=== PATIENT | female | born 1980 | race Caucasian/White ===

== ENCOUNTER 2017-02-15 17:54 | Emergency (ER) | payer OTHER ==
[2017-02-15] MEDS ORDERED: SODIUM CHLORIDE 0.9% 1,000 ML IV ONE (18:11)
[2017-02-15] MEDS ORDERED: KETOROLAC 60 MG/2 ML VIAL IVP STA (18:11)
[2017-02-15] MEDS ORDERED: DEXAMETHASONE 10 MG/ML VIAL IVP STA (18:12)
[2017-02-15] MEDS ORDERED: diphenhydrAMINE INJ 50 MG/ML VIAL IVP STA (18:12)
--- NOTE | 2017-02-15 18:13 | ED Physician Documentation ---
History of Present Illness - Stated complaint Stated Complaint: HEADACHE/12 DAYS - Chief complaint Chief Complaint: General - History obtained from History obtained from: Patient, Family - History of Present Illness Timing: Other (36-year-old woman with history of migraines for a long time. Was maintained on prophylactic Topamax but she stopped it a year and a half ago due to side effects. Usually her migraines are controlled by [id number] medications at home, but she had a gradual onset typical throbbing headache associated photophobia, phonophobia, and nausea but no vomiting 12 days ago that has not responded to her usual treatments. There is no associated fever or neck stiffness.) Review of Systems Constitutional: denies: Fever, Chills Eyes: reports: Photophobia. 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 - Present Medications Home Medications: Ambulatory Orders Medication Instructions Recorded Confirmed Multivitamin [Multiple Vitamins] 1 tab PO DAILY 02/15/17 02/15/17 - Allergies Allergies/Adverse Reactions: Allergies Allergy/AdvReac Type Severity Reaction Status Date / Time No Known Drug Allergies Allergy Verified 02/15/17 17:59 - Social History Does the pt smoke?: No Smoking Status: Never smoker Does the pt drink ETOH?: No Does the pt have substance abuse?: No - Immunizations Immunizations are current?: Yes PD ED PE NORMAL - Vitals Vital signs reviewed: Yes - General General: Alert and oriented X 3, No acute distress - HEENT HEENT: PERRL, EOMI - Neck Neck: Supple, no meningeal sign, No bony TTP - Derm Derm: No rash - Neuro Neuro: Alert and oriented X 3, financial services officer 2-12 intact, No motor deficit, No sensory deficit, Normal speech - Psych Psych: Normal mood, Normal affect Results - Vitals Vitals: Vital Signs - 24 hr 02/15/17 02/15/17 17:57 20:09 Temperature 37.0 C Heart Rate 85 53 L Respiratory 16 18 Rate Blood Pressure 126/80 147/91 H O2 Saturation 98 97 Oxygen O2 Source Room air PD MEDICAL DECISION MAKING - ED course ED course: The headache is gradual in onset and similar to prior headaches. As such I doubt subarachnoid hemorrhage. There are no infectious symptoms such as fever or stiff neck to make me suspect meningitis. No carbon monoxide exposure by history. Initially treated with IV fluids, Toradol, Reglan, Benadryl, dexamethasone. On recheck after that she had significant relief, but definitely incomplete. This was followed by subcutaneous Imitrex which was ineffective if not slightly worse after that, after that she had IV Haldol and magnesium which completely resolved her headache and she was quite thankful. Departure - Departure Disposition: Home, Self Care Clinical Impression: Migraine Qualifiers: Migraine type: without aura Status migrainosus presence: with status migrainosus Intractability: intractable Qualified Code(s): G43.011 - Migraine without aura, intractable, with status migrainosus Condition: Good Record reviewed to determine appropriate education?: Yes Instructions: ED Headache Migraine Comments: For future reference, the most successful medication here was haloperidol. Call your doctor to arrange a follow-up appointment, make the next available appointment. In the interim, return anytime if worse or if new symptoms develop. Your blood pressure was elevated today on check into the emergency department. This does not mean that you have hypertension, it is a common phenomenon to come to the emergency department and have elevated blood pressure. I recommend that she see her primary care physician within the week to have it rechecked when you are feeling better.
[2017-02-15] MEDS ORDERED: KETOROLAC 30 MG/ML VIAL ONE (18:21)
[2017-02-15] MEDS ORDERED: diphenhydrAMINE INJ 50 MG/ML VIAL ONE (18:21)
[2017-02-15] MEDS ORDERED: DEXAMETHASONE 10 MG/ML VIAL ONE (18:21)
[2017-02-15] MEDS ORDERED: SUMAtriptan 6 MG/0.5 ML VIAL SUBQ STA (18:59)
[2017-02-15] MEDS ORDERED: SUMAtriptan 6 MG/0.5 ML VIAL SUBQ ONE (19:21)
[2017-02-15] MEDS ORDERED: MAGNESIUM SULFATE 2 GRAM 50 ML IV ONE ×2 (19:51→20:01)
[2017-02-15] MEDS ORDERED: HALOPERIDOL 5 MG/ML VIAL IVP ONE (19:51)
[2017-02-15] MEDS ORDERED: HALOPERIDOL 5 MG/ML VIAL ONE (20:01)
[2017-02-15 20:58] VITALS: BP 123/79
== END 2017-02-15 20:58 | disposition home or self-care (01) ==
LOC: ED 17:54
DX: G43.011 Migraine without aura, intractable, with status migrainosus (principal); R03.0 Elevated blood-pressure reading, without diagnosis of hypertension; H53.149 Visual discomfort, unspecified
CPT/HCPCS: 36415; 96365; 96372; 96375; 99283; 99284

== ENCOUNTER 2018-11-23 16:32 | Emergency (ER) | payer OTHER ==
[2018-11-23] MEDS ORDERED: KETOROLAC 60 MG/2 ML VIAL IM STA (17:01)
--- NOTE | 2018-11-23 17:03 | ED Physician Documentation ---
History of Present Illness - Stated complaint Stated Complaint: FEMALE - Chief complaint Chief Complaint: General - History obtained from History obtained from: Patient - History of Present Illness Timing: Yesterday (This is a 37-year-old woman with history of C-sections and occasional ovarian pain who had a Pap smear yesterday. After that she had gradual onset but mild vaginal and pelvic pain which became much more severe today. She was seen again at the [facility] [facility] and had a pelvic exam done which was described as normal visually but she says the bimanual portion was very tender. She denies bleeding or discharge. She has severe lower abdominal pain. She is nauseous because of it. She denies any fevers. 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 - Present Medications Home Medications: Ambulatory Orders Medication Instructions Recorded Confirmed Multivitamin [Multiple Vitamins] 1 tab PO DAILY 02/15/17 02/15/17 Hydrocodone/Acetaminophen 1 - 2 each PO Q6H PRN #14 tablet 11/23/18 [Hydrocodon-Acetaminophen 5-325] Metronidazole [Flagyl] 500 mg PO TID #20 tablet 11/23/18 RX: Doxycycline Hyclate 100 mg PO BID #20 capsule 11/23/18 - Allergies Allergies/Adverse Reactions: Allergies Allergy/AdvReac Type Severity Reaction Status Date / Time No Known Drug Allergies Allergy Verified 11/23/18 16:49 - Living Situation Living Situation: reports: With spouse/s.o. - Social History Does the pt smoke?: No Smoking Status: Never smoker Does the pt drink ETOH?: No Does the pt have substance abuse?: No - Family History Family history: reports: Non contributory - Immunizations Immunizations are current?: Yes PD ED PE NORMAL - Vitals Vital signs reviewed: Yes - General General: Alert and oriented X 3, Well developed/nourished (Appears uncomfortable) - HEENT HEENT: PERRL - Neck Neck: Supple, no meningeal sign, No bony TTP - Cardiac Cardiac: RRR, No murmur - Respiratory Respiratory: No respiratory distress, Clear bilaterally - Abdomen Abdomen: Other (Soft without surgical signs. She is tender in the suprapubic area and left greater than right lower quadrants.) - Back Back: No CVA TTP, No spinal TTP - Derm Derm: Normal color, Warm and dry - Extremities Extremities: No edema, No calf tenderness / cord - Neuro Neuro: Alert and oriented X 3, Normal speech Results - Vitals Vitals: Vital Signs - 24 hr 11/23/18 11/23/18 16:45 20:20 Temperature 36.9 C 36.9 C Heart Rate 73 74 Respiratory 14 14 Rate Blood Pressure 138/103 H 117/83 H O2 Saturation 96 97 Oxygen O2 Source Room air - Labs Labs: Laboratory Tests 11/23/18 11/23/18 11/23/18 17:09 17:09 17:10 WBC 9.1 RBC 4.63 Hgb 13.5 Hct 40.6 MCV 87.7 MCH 29.1 MCHC 33.1 RDW 13.3 Plt Count 211 MPV 7.8 L Neut # (Auto) 5.5 Lymph # (Auto) 2.6 Lanier # (Auto) 0.7 Eos # (Auto) 0.2 Baso # (Auto) 0.1 Absolute Nucleated RBC 0.00 Nucleated RBC % 0.0 Sodium 140 Potassium 4.0 Chloride 102 Carbon Dioxide 23 Anion Gap 15.0 H BUN 12 Creatinine 0.8 Estimated GFR (MDRD) 80 L Glucose 97 Calcium 9.2 Total Bilirubin 0.4 AST 25 ALT 19 Alkaline Phosphatase 50 Total Protein 7.6 Albumin 3.8 Globulin 3.8 Albumin/Globulin Ratio 1.0 Lipase 40 Urine Color YELLOW Urine Clarity CLEAR Urine pH 7.0 Ur Specific [place] 1.010 Urine Protein TRACE Urine Glucose (UA) 100 H Urine Ketones NEGATIVE Urine Occult Blood SMALL H Urine Nitrite POSITIVE H Urine Bilirubin NEGATIVE Urine Urobilinogen 2 H Ur Leukocyte Esterase TRACE H Urine RBC 0-5 Urine WBC 6-10 H Ur Squamous Epith Cells MOD Squamous H Urine Bacteria Rare Urine Mucus Ur Microscopic Review INDICATED Urine Culture Comments NOT INDICATED Urine HCG, Qual NEGATIVE 11/23/18 19:00 WBC RBC Hgb Hct MCV MCH MCHC RDW Plt Count MPV Neut # (Auto) Lymph # (Auto) Lan[place] # (Auto) Eos # (Auto) Baso # (Auto) Absolute Nucleated RBC Nucleated RBC % Sodium Potassium Chloride Carbon Dioxide Anion Gap BUN Creatinine Estimated GFR (MDRD) Glucose Calcium Total Bilirubin AST ALT Alkaline Phosphatase Total Protein Albumin Globulin Albumin/Globulin Ratio Lipase Urine Color ORANGE Urine Clarity CLEAR Urine pH 6.0 Ur Specific [place] 1.025 Urine Protein 30 H Urine Glucose (UA) Urine Ketones Urine Occult Blood SMALL H Urine Nitrite Urine Bilirubin COLOR INTERFERENCE Urine Urobilinogen Ur Leukocyte Esterase TRACE H Urine RBC 0-5 Urine WBC 11-25 H Ur Squamous Epith Cells FEW Squamous Urine Bacteria None Seen Urine Mucus Moderate Strands Ur Microscopic Review INDICATED Urine Culture Comments INDICATED Urine HCG, Qual - Rads (name of study) Pelvic sono Radiology: See rad report (Vascular bandlike structure in the right adnexa with of 1.6 cm which is very painful, could be a normal or abnormal finding.) PD MEDICAL DECISION MAKING - ED course ED course: 37-year-old woman in monogamous relationship presents with severe pelvic pain a day after having a Pap smear. Ultrasound potentially concerning for tubo- ovarian abscess. Case discussed by phone with Dr. Wilkinson the on-call improvement leader who recommended discharge with antibiotics and return for vomiting or fevers. Patient comfortable with the plan. Departure - Departure Disposition: 01 Home, Self Care Clinical Impression: PID (acute pelvic inflammatory disease), UTI (urinary tract infection) Condition: Good Record reviewed to determine appropriate education?: Yes Instructions: ED PID Prescriptions: RX: Doxycycline Hyclate 100 mg PO BID #20 capsule Hydrocodone/Acetaminophen [Hydrocodon-Acetaminophen 5-325] 1 - 2 each PO Q6H PRN #14 tablet PRN Reason: pain Metronidazole [Flagyl] 500 mg PO TID #20 tablet Comments: As discussed, return immediately if pain is intolerable, for fevers, or vomiting. Follow-up with your doctor in 48 hours. We will culture your urine, the results should be done in 48-72 hours. If an antibiotic change is necessary we will call you. Return if worse in the meantime, especially if you develop increasing flank pain, fevers, or cannot keep down the medication. Discharge Date/Time: 11/23/18 21:08
[2018-11-23 17:16] LABS: BASOPHILS # (AUTO) 0.1 10^3/uL (0.0-0.1); BASOPHILS % (AUTO) 0.6 %; EOSINOPHILS # (AUTO) 0.2 10^3/uL (0.0-0.7); HGB - HEMOGLOBIN 13.5 g/dL (12.0-16.0); LYMPHOCYTES # (AUTO) 2.6 10^3/uL (1.5-3.5); LYMPHOCYTES % (AUTO) 29.1 %; MEAN CORPUSCULAR HEMOGLOBIN 29.1 pg (27.0-31.0); MEAN CORPUSCULAR HGB CONC 33.1 g/dL (32.0-36.0); MEAN CORPUSCULAR VOLUME 87.7 fL (81.0-99.0); MEAN PLATELET VOLUME 7.8 fL (7.9-10.8); MONOCYTES # (AUTO) 0.7 10^3/uL (0.0-1.0); MONOCYTES % (AUTO) 7.5 %; NEUTROPHILS # (AUTO) 5.5 10^3/uL (1.5-6.6); NEUTROPHILS % (AUTO) 60.8 %; PLT - PLATELET COUNT 211 10^3/uL (130-450); RED BLOOD COUNT 4.63 10^6/uL (4.20-5.40); RED CELL DISTRIBUTION WIDTH 13.3 % (12.0-15.0); WHITE BLOOD COUNT 9.1 x10^3/uL (4.8-10.8)
[2018-11-23 17:22] LABS: BILIRUBIN,URINE NEGATIVE (NEGATIVE); CLARITY,URINE CLEAR (CLEAR); GLUCOSE, URINE (UA) 100 mg/dL (NEGATIVE); KETONES,URINE (UA) NEGATIVE (NEGATIVE); LEUKOCYTE ESTERASE, URINE TRACE (NEGATIVE); NITRITE,URINE POSITIVE (NEGATIVE); OCCULT BLOOD,URINE SMALL (NEGATIVE); PROTEIN,URINE TRACE mg/dL (NEGATIVE); UROBILINOGEN,URINE 2 E.U./dL (NORMAL)
[2018-11-23 17:23] LABS: HCG UR QUAL NEGATIVE
[2018-11-23 17:30] LABS: ALBUMIN 3.8 g/dL (3.2-5.5); BILIRUBIN,TOTAL 0.4 mg/dL (0.2-1.0); CALCIUM 9.2 mg/dL (8.5-10.3); CREATININE 0.8 mg/dL (0.4-1.0); TOTAL PROTEIN 7.6 g/dL (6.7-8.2)
[2018-11-23 17:35] LABS: BACTERIA,URINE Rare /HPF (None Seen); RBC,URINE 0-5 /HPF (0-5); SQUAMOUS EPITHELIAL CELL,UR MOD Squamous (<= Few)
[2018-11-23 19:15] LABS: LEUKOCYTE ESTERASE, URINE TRACE (NEGATIVE); OCCULT BLOOD,URINE SMALL (NEGATIVE); PROTEIN,URINE 30 mg/dL (NEGATIVE)
[2018-11-23 19:27] LABS: CLARITY,URINE CLEAR (CLEAR)
--- NOTE | 2018-11-23 19:28 | Ultrasound Report ---
Reason: pelvic pain, R Procedure Date: 11/23/2018 Accession Number: [id number] / [id number] Procedure: US - Pelvic w/Transvag+Doppler Comp CPT Code: FULL RESULT: EXAM: PELVIC ULTRASOUND WITH DOPPLERS CLINICAL HISTORY: Right pelvic pain. COMPARISON: None. TECHNIQUE: Realtime transabdominal imaging performed to identify the uterus and adnexa and as an overview of other pelvic structures, followed by transvaginal imaging for better assessment of the endometrium and adnexa, with static image documentation. Color flow imaging and Doppler spectral analysis was performed to evaluate blood flow to the ovaries given pelvic pain and clinical concern for ovarian torsion. FINDINGS: Uterus: 10.9 x 5.2 x 6.0 cm, volume 177 cc. Anteverted position. Normal overall size and echotexture. scar is suspected. Masses: None. Endometrium: 7.7 mm. Normal. Cervix: Unremarkable. Right Ovary: 3.6 x 2.0 x 2.7 cm, volume 10.1 cc. Corpus luteum seen in the right ovary. Normal echotexture. Arterial and venous blood flow are present. PSV 35 cm/sec. RI 0.63. Adnexa: Bandlike structure with vascularity seen in the right adnexa connecting the right ovary to the uterus, has a width of 1.6 cm, could represent the utero-ovarian ligament, could be prominent or within normal limits. The patient is in extreme pain in this area.. Left Ovary: 3.1 x 1.9 x 2.3 cm, volume 7.0 cc. Normal echotexture. Arterial and venous blood flow are present. PSV 12 cm/sec. RI 0.73. Adnexa are unremarkable. Free Fluid: None. Other: None. IMPRESSION: 1. No evidence for ovarian torsion. 2. Bandlike structure with vascularity seen in the right adnexa connecting the right ovary to the uterus, has a width of 1.6 cm, could represent the utero-ovarian ligament, could be prominent or within normal limits. The patient is in extreme pain in this area. RADIA
[2018-11-23 19:29] LABS: BILIRUBIN,URINE COLOR INTERFERENCE (NEGATIVE)
[2018-11-23 19:30] LABS: BACTERIA,URINE None Seen /HPF (None Seen); MUCUS,URINE Moderate Strands; RBC,URINE 0-5 /HPF (0-5); SQUAMOUS EPITHELIAL CELL,UR FEW Squamous (<= Few)
[2018-11-23 20:21] VITALS: BP 117/83
[2018-11-23] MEDS ORDERED: metroNIDAZOLE 250 MG TABLET PO STA ×2 (20:26)
[2018-11-23] MEDS ORDERED: HYDROcod/ACET 5/325 Prepack 4 PO STA (20:26)
[2018-11-23] MEDS ORDERED: DOXYCYCLINE 100 MG TABLET PO STA (20:26)
[2018-11-23] MEDS ORDERED: cefTRIAXone 1 GM VIAL IM STA (20:26)
[2018-11-23] MEDS ORDERED: HYDROcod/ACETAM 5/325 MG TABLET PO STA (20:26)
[2018-11-23] MEDS ORDERED: LIDOCAINE 1% 2 ML VIAL MC ONE (20:26)
== END 2018-11-23 21:08 | disposition home or self-care (01) ==
LOC: ED 16:32
DX: N73.9 Female pelvic inflammatory disease, unspecified (principal); N39.0 Urinary tract infection, site not specified
CPT/HCPCS: 36415; 76830; 76856; 80053; 81001; 81025; 83690; 85025; 87077; 87086; 93975; 96372; 99283; A9270; 81003

== ENCOUNTER 2018-12-27 09:25 | Day surgery (SDC) | payer OTHER ==
[~2018-12-27 09:25] MED LIST: CEFAZOLIN SODIUM IN 0.9 % NACL 2 GM/100 ML BAG IV ONE
[2018-12-27] MEDS ORDERED: LACTATED RINGERS 1,000 ML IV ONE (09:29)
[2018-12-27 09:44] LABS: HCG UR QUAL NEGATIVE
--- NOTE | 2018-12-27 09:58 | ANESTHESIA ---
Pre-Anesthesia VS, & Labs - Diagnosis Pelvic pain - Procedure Diagnostic lap, possible fulgeration/biopsies/lysis of adhesions Vital Signs: Temp Pulse Resp BP Pulse Ox 36.6 C 75 16 115/73 100 12/27/18 09:30 12/27/18 09:30 12/27/18 09:30 12/27/18 09:30 12/27/18 09:30 Height 5 ft 7 in Weight (kg) 98.6 kg Body Mass Index 25.8 - NPO >8 hours - Is Patient ?: No - Lab Results Lab results reviewed: Yes Home Medications and Allergies Home Medications: Ambulatory Orders Ibuprofen [Motrin] 600 mg PO Q6H PRN 12/16/18 Acetaminophen [Tylenol Extra Strength] 500 mg PO Q4HR 12/27/18 Multivitamin [Multiple Vitamins] 1 tab PO DAILY 02/15/17 Ibuprofen [Motrin] 600 mg PO Q6H PRN 12/16/18 Levofloxacin [Levaquin] 500 mg PO 12/16/18 Allergies/Adverse Reactions: Allergies Allergy/AdvReac Type Severity Reaction Status Date / Time No Known Drug Allergies Allergy Verified 12/16/18 15:21 Anes History & Medical History - Anesthetic History Anesthesia Complications: reports: No previous complications Family history of Anesthesia Complications: Denies Family history of Malignant Hyperthermia: Denies - Medical History Cardiovascular: reports: None Pulmonary: reports: None Gastrointestinal: reports: None, Other (Nausea with pain) Urinary: reports: Other (Urinary burning) Neuro: reports: None Musculoskeletal: reports: None Endocrine/Autoimmune: reports: None Blood Disorders: reports: None Skin: reports: None Smoking Status: Never smoker Psychosocial: reports: No issues indicated - Surgical History Gynecologic: section, Other Exam General: Alert, Oriented x3, Cooperative Dental: WNL Mouth Opening: Greater than 4 Fingerbreadths Neck Mobility: Normal Mallampati classification: I Thyromental Distance: greater than 6 cm Respiratory: Lungs clear Cardiovascular: Regular rate Mental/Cognitive Status: Alert/Oriented X3 Cognitive Status: Within normal limits Plan Anesthesia Type: General Consent for Procedure(s) Verified and Reviewed: Yes Code Status: Attempt Resuscitation ASA classification: 2-Mild systemic disease Is this case an emergency?: No
[2018-12-27] MEDS ORDERED: BUPIVACAINE 0.25% PF 30 ML VIAL ONE (10:03)
[2018-12-27] MEDS ORDERED: PROPOFOL 200 MG/20 ML VIAL IVP ONE (10:50)
[2018-12-27] MEDS ORDERED: KETOROLAC 30 MG/ML VIAL IVP ONE (10:50)
[2018-12-27] MEDS ORDERED: NEOSTIGMINE 1 MG/1 ML 10 ML MDV IVP ONE (10:50)
[2018-12-27] MEDS ORDERED: ACETAMINOPHEN 1,000 MG/100 ML 100 ML IV ONE (10:50)
[2018-12-27] MEDS ORDERED: fentaNYL 100 MCG/2 ML VIAL IVP ONE (10:50)
[2018-12-27] MEDS ORDERED: GLYCOPYRROLATE 1 MG/5 ML VIAL IVP ONE (10:50)
[2018-12-27] MEDS ORDERED: MIDAZOLAM 2 MG/2 ML VIAL IVP ONE (10:50)
[2018-12-27] MEDS ORDERED: ONDANSETRON 4 MG/2 ML VIAL IVP ONE (10:50)
[2018-12-27] MEDS ORDERED: ROCURONIUM 50 MG/5 ML VIAL IVP ONE (10:50)
[2018-12-27] MEDS ORDERED: DEXAMETHASONE 4 MG/ML VIAL IVP ONE (10:50)
[2018-12-27] MEDS ORDERED: LIDOCAINE-MPF 2% 5 ML VIAL IM ONE (10:50)
[2018-12-27] MEDS ORDERED: HYDROcod/ACETAM 10 MG/325 MG TABLET PO PRN (11:44)
[2018-12-27] MEDS ORDERED: ONDANSETRON 4 MG/2 ML VIAL IVP PRN (11:44)
[2018-12-27] MEDS ORDERED: OXYBUTYNIN 5MG TABLET PO PRN (11:44)
--- NOTE | 2018-12-27 11:52 | OPERATIVE REPORT ---
Operative Report - General Procedure Date: 12/27/18 Planned Procedure: Laparoscopy, cystoscopy with hydrodistention, possible fulguration of endometriosis, possible lysis of adhesions Pre-Op Diagnosis: Pelvic pain Procedure Performed: Laparoscopy, fulguration of endometriosis, lysis of adhesion, cystoscopy with hydrodistention Post Op Diagnosis: Endometriosis, pelvic adhesion - Procedure Note Primary Surgeon: Dr. Noris Tamayo Secondary Surgeon: Dr. Clifton Cordon Anesthesia Provider: MILTON Jean Anesthesia Technique: General ET tube Pathology: None IV Fluids (mL): 700 Estimated Blood Loss (mL): 5 Urine Output (mL): 100 Indications: The patient is a 38-year-old 2 para 2 female here for diagnostic laparoscopy for evaluation and possible management of chronic pelvic pain. She first noted pelvic pain started approximately 3 years ago, upon cessation of control pills. She stopped the medication due to bothersome hormonal and mood side effects. Menses since then have been every 20 to 30 days. They are light and last approximately 2 days. She notes bilateral pelvic pain with the right worse than the left, and seems to note the pain most at the sites of her ovaries. Symptoms have really seemed to worsen over the past year and now occurs daily. Pain is crampy with frequent stabbing into her cervix and at her ovaries. She does have dyspareunia with deep penetration only, which is usually not much of a bother. She had severe pain after her last well-woman, bimanual exam in early November and had to go to the Emergency Room 11/24 due to persistent pain. There, a pelvic ultrasound noted a vascular band adjacent to the right ovary but no cysts, masses, or free fluid. She was treated for possible pelvic inflammatory disease given the presence of cervical motion tenderness. However, upon stopping the antibiotics, pain continued. She does have a history of 2 prior sections for deliveries. Given the onset of pain after stopping control pills, the differential diagnosis included adhesions, as well as endometriosis. She also had a history notable for recurrent dysuria with monthly urinary tract infection symptoms. However, she reported she stopped coming in for visits, as the urine cultures were usually negative. Given this constellation of symptoms, it was recommended she undergo a diagnostic laparosc opy, as well as a cystoscopy with hydrodistention, to further evaluate and possibly treat her pelvic pain. The risks, benefits, limitations, alternatives, and expectations of surgery were discussed. The consent was reviewed and signed prior to the date of surgery. Findings: Exam under anesthesia: The uterus was anteverted and approximately 7 weeks in size. No adnexal masses were palpable. The uterus was felt to be mobile within the pelvis. Operative findings: The uterus, fallopian tubes, and ovaries were overall normal in appearance. However, there was a small, approximately 1 cm, paratubal cyst at the distal left fallopian tube, and there was also some salpingiosis present. There was a single endometriotic implant at the left anterior cul-de-sac, overlying the bladder flap on the peritoneal reflection. There were also multiple, tiny cystic endometriosis lesions at the right, anterior uterus and a single cystic lesion just posterior to the cervix, within the posterior cul-de-sac. These were all fulgurated with monopolar cautery. There was mild scar tissue across the bladder flap site, resulting from her sections. There was also a thick band of scar tissue from the right lower uterine segment to the anterior peritoneum. This was lysed at the completion of the case. There was mild, bilateral pelvic vascular congestion noted. The appendix was visualized and appeared normal. The liver edge also appeared normal. There were no other pelvic adhesions noted. Cystoscopy noted diffuse hyperemia. However, during the hydrodistention, there was no development of terminal hematuria, Hunner's ulcers, or petechiae consistent with interstitial cystitis. - Other Other Information/Narrative: Procedure: The patient was taken to the operating room, where general endotracheal anesthesia was administered without difficulty. She was then positioned in the low dorsal lithotomy position with her lower extremities in [place] stirrups. Vagina, perineum, and abdomen were then prepped and draped in a sterile fashion, and an in-an-out catheterization was performed. Procedure Time-Out was then performed. A sterile bivalve speculum was then inserted into the vagina. The anterior lip of the cervix was grasped with a single-toothed tenaculum, then the cervix was serially dilated until a Humi uterine manipulator could be advanced and the balloon inflated. The speculum was then removed, and attention was turned to the laparoscopy. 0.25% Marcaine was injected infraumbilically, then a 7-mm vertical skin incision made. A Verrees needle was then inserted through the anterior layers of the abdominal wall with saline drop test suggesting intraperitoneal placement. Carbon dioxide gas insufflation was then performed with appropriate opening pressures noted. Once 2 L of gas was instilled, a 0-degree, 5 mm laparoscope was inserted into a 5 mm trocar and passed through the anterior layers of the abdominal wall using Optiview technique. The abdomen was visualized, then two additional ports placed at the right and left lower quadrants, first instilling local anesthetic, then placing the port under direct visualization with the laparoscope. The patient was placed into Trendelenberg and bowel swept out of the cul-de-sac. The pelvis was visualized with the findings as noted above. Monopolar cautery was utilized to fulgurate the endometriosis lesions at the anterior, left pelvis, within the cul-de-sac, and across the right, anterior fundus. At this point the laparoscopy was deemed complete, and all trocars were removed from the abdomen. The carbon dioxide gas was then allowed to escape. The incisions were then closed with 4-0 Monocryl in a subcuticular fashion followed by Dermabond skin adhesive. The uterine manipulator was removed, then the sterile bivalve speculum reinserted to ensure that the tenaculum sites were hemostatic. Attention was then turned to the cystoscopy. The bladder was filled with approximately 700 ml of sterile saline with the distention fluid placed approximately 100 cm above the level of the bladder. At 700 ml, the fluid started to leak around the scope, and instillation was paused. The fluid was left in the bladder for 2 minutes then emptied. No terminal hematuria was noted. The bladder was then refilled. No hematuria, Hunner's ulcers, or petechiae were noted. The fluid was again allowed to sit for 2 minutes then drained. At this point the procedure was deemed complete. The patient was then replaced supine, awakened, extubated, and transferred to the PACU in stable condition. There were no complications. Sponge, lap, and needle count were correct x 3.
[2018-12-27] MEDS: fentaNYL 100 MCG/2 ML VIAL ONE ×2 (11:57→12:10)
[2018-12-27] MEDS ORDERED: LACTATED RINGERS 500 ML IV ONE (12:10)
[2018-12-27] MEDS: HYDROmorphone 0.5 MG/0.5 ML SYRINGE ONE ×2 (12:16→12:22)
[2018-12-27] MEDS ORDERED: HYDROcod/ACETAM 10 MG/325 MG TABLET ONE (12:57)
[2018-12-27 14:09] VITALS: BP 101/63
== END 2018-12-27 09:26 | disposition home or self-care (01) ==
LOC: SDS 09:25
PROVIDERS: ATTEND Obstetrics & Gynecology
PROC: 0TJB8ZZ Inspection of Bladder, Via Natural or Artificial Opening Endoscopic (ICD-10-PCS; 2018-12-27)
PROC: 0U5F4ZZ Destruction of Cul-de-sac, Percutaneous Endoscopic Approach (ICD-10-PCS; principal; 2018-12-27 10:30)
PROC: 0U594ZZ Destruction of Uterus, Percutaneous Endoscopic Approach (ICD-10-PCS; 2018-12-27 10:30)
DX: N80.3 Endometriosis of pelvic peritoneum (principal); N80.0 Endometriosis of uterus; N99.4 Postprocedural pelvic peritoneal adhesions; N94.89 Other specified conditions associated with female genital organs and menstrual cycle; N32.89 Other specified disorders of bladder; N94.12 Deep dyspareunia; Z92.0 Personal history of contraception; Z98.891 History of uterine scar from previous surgery
CPT/HCPCS: 52000; 58662; 81025; A9270; J0131; J0690; J1170; J7120

== ENCOUNTER 2019-04-06 08:41 | Emergency (ER) | payer OTHER ==
--- NOTE | 2019-04-06 09:25 | XRAY Report ---
Reason: chest pressure Procedure Date: 04/06/2019 Accession Number: [id number] / [id number] Procedure: XR - Chest 1 View X-Ray CPT Code: 66684 FULL RESULT: EXAM: CHEST RADIOGRAPHY EXAM DATE: 04/06/2019 09:13 AM. CLINICAL HISTORY: Chest pressure. COMPARISON: CHEST 2 VIEW PA/LAT 12/13/2013 6:55 PM. TECHNIQUE: 1 view. FINDINGS: Lungs/Pleura: No focal opacities evident. No pleural effusion. No pneumothorax. Mediastinum: Within exam limitations, the cardiomediastinal contour is normal. Other: None. IMPRESSION: No acute cardiopulmonary abnormality. RADIA
[2019-04-06 09:36] LABS: BASOPHILS % (AUTO) 0.8 %; EOSINOPHILS # (AUTO) 0.1 10^3/uL (0.0-0.7); EOSINOPHILS % (AUTO) 2.4 %; LYMPHOCYTES # (AUTO) 1.5 10^3/uL (1.5-3.5); LYMPHOCYTES % (AUTO) 29.9 %; MEAN CORPUSCULAR HEMOGLOBIN 29.1 pg (27.0-31.0); MEAN CORPUSCULAR HGB CONC 32.3 g/dL (32.0-36.0); MEAN CORPUSCULAR VOLUME 90.4 fL (81.0-99.0); MEAN PLATELET VOLUME 10.1 fL (7.9-10.8); MONOCYTES # (AUTO) 0.4 10^3/uL (0.0-1.0); MONOCYTES % (AUTO) 8.7 %; NEUTROPHILS # (AUTO) 2.9 10^3/uL (1.5-6.6); NEUTROPHILS % (AUTO) 57.8 %; PLT - PLATELET COUNT 190 10^3/uL (130-450); RED BLOOD COUNT 4.46 10^6/uL (4.20-5.40); RED CELL DISTRIBUTION WIDTH 12.7 % (12.0-15.0); WHITE BLOOD COUNT 5.1 x10^3/uL (4.8-10.8)
[2019-04-06 09:47] LABS: ALBUMIN 4.1 g/dL (3.2-5.5); ALBUMIN/GLOBULIN RATIO 1.2 (1.0-2.2); BILIRUBIN,TOTAL 0.7 mg/dL (0.2-1.0); CALCIUM 9.1 mg/dL (8.5-10.3); CREATININE 0.8 mg/dL (0.4-1.0); TOTAL PROTEIN 7.6 g/dL (6.7-8.2)
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
[2019-04-06] MEDS ORDERED: ASPIRIN CHEW 81 MG TABLET PO STA (14:17)
[2019-04-06 16:55] VITALS: BP 110/72
== END 2019-04-06 17:13 | disposition short-term general hospital (02) ==
LOC: ED 08:41
DX: R07.89 Other chest pain (principal); M79.602 Pain in left arm; Z82.49 Family history of ischemic heart disease and other diseases of the circulatory system
CPT/HCPCS: 36415; 71045; 80053; 83690; 84484; 85025; 93005; 99284; 99285; A9270

== ENCOUNTER 2019-04-06 17:06 | Outpatient (CLI) | payer OTHER | END 2019-04-06 17:07 | disposition short-term general hospital (02) | LOC: EMS 17:06 | PROVIDERS: ATTEND Surgery | DX: R07.9 Chest pain, unspecified (principal) | CPT/HCPCS: A0425; A0426 ==

== ENCOUNTER 2019-09-08 14:17 | Emergency (ER) | payer OTHER ==
[2019-09-08] MEDS ORDERED: SODIUM CHLORIDE 0.9% 1,000 ML IV ONE ×2 (15:19→18:18)
[2019-09-08] MEDS ORDERED: ONDANSETRON 4 MG/2 ML VIAL IVP STA ×2 (15:19→18:33)
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
[2019-09-08 15:35] LABS: BASOPHILS % (AUTO) 0.3 %; EOSINOPHILS % (AUTO) 0.1 %; HGB - HEMOGLOBIN 14.5 g/dL (12.0-16.0); LYMPHOCYTES # (AUTO) 0.4 10^3/uL (1.5-3.5); LYMPHOCYTES % (AUTO) 5.4 %; MEAN CORPUSCULAR VOLUME 88.2 fL (81.0-99.0); MEAN PLATELET VOLUME 9.4 fL (7.9-10.8); MONOCYTES # (AUTO) 0.3 10^3/uL (0.0-1.0); MONOCYTES % (AUTO) 3.8 %; NEUTROPHILS % (AUTO) 89.9 %; PLT - PLATELET COUNT 177 10^3/uL (130-450); RED BLOOD COUNT 4.84 10^6/uL (4.20-5.40); RED CELL DISTRIBUTION WIDTH 13.2 % (12.0-15.0); WHITE BLOOD COUNT 7.8 x10^3/uL (4.8-10.8)
[2019-09-08 15:49] LABS: ALBUMIN 4.2 g/dL (3.2-5.5); ALBUMIN/GLOBULIN RATIO 1.2 (1.0-2.2); BILIRUBIN,TOTAL 0.8 mg/dL (0.2-1.0); CALCIUM 8.9 mg/dL (8.5-10.3); CREATININE 0.8 mg/dL (0.4-1.0); TOTAL PROTEIN 7.6 g/dL (6.7-8.2)
[2019-09-08] MEDS ORDERED: PROMETHAZINE INJ 25 MG in SODIUM CHLORIDE 0.9% 50 ML IV STA (16:23)
[2019-09-08 17:33] LABS: BILIRUBIN,URINE NEGATIVE (NEGATIVE); GLUCOSE, URINE (UA) NEGATIVE (NEGATIVE); KETONES,URINE (UA) >=80 mg/dL (NEGATIVE); LEUKOCYTE ESTERASE, URINE NEGATIVE (NEGATIVE); NITRITE,URINE NEGATIVE (NEGATIVE); OCCULT BLOOD,URINE SMALL (NEGATIVE); PROTEIN,URINE NEGATIVE (NEGATIVE); UROBILINOGEN,URINE 0.2 (NORMAL) E.U./dL (NORMAL)
[2019-09-08 17:35] LABS: CLARITY,URINE CLEAR (CLEAR)
[2019-09-08 17:37] LABS: HCG UR QUAL NEGATIVE
[2019-09-08 17:48] LABS: BACTERIA,URINE Few /HPF (None Seen); RBC,URINE 0-5 /HPF (0-5); SQUAMOUS EPITHELIAL CELL,UR MANY Squamous (<= Few)
[2019-09-08 20:01] VITALS: BP 107/59
== END 2019-09-08 20:00 | disposition home or self-care (01) ==
LOC: ED 14:17
DX: A08.4 Viral intestinal infection, unspecified (principal)
CPT/HCPCS: 36415; 80053; 81001; 81025; 83690; 85025; 96361; 96365; 96375; 96376; 99283; 99284; J7040; 81003; 87086

== ENCOUNTER 2020-09-17 15:35 | Outpatient (CLI) | payer OTHER ==
--- NOTE | 2020-09-18 11:08 | Mammography Report ---
BILATERAL DIGITAL SCREENING MAMMOGRAM 3D/2D: 09/17/2020 CLINICAL: Routine screening. Family history of breast cancer. Baseline exam. No prior exams were available for comparison. The tissue of both breasts is extremely dense, which l owers the sensitivity of mammography. No significant masses, calcifications, or other findings are seen in either breast. IMPRESSION: NEGATIVE There is no mammographic evidence of malignancy. A 1 year screening mammogram is recommended. This exam was interpreted at Station ID: [id number]. NOTE: For mammograms, a report in lay terms will be sent to the patient. Approximately 15% of breast malignancies will not be visualized mammographically. In the management of a palpable breast mass, a negative mammogram must not discourage biopsy of a clinically suspicious lesion. Electronically Signed By: Jamie schmitt/leon:09/17/2020 18:10:28 ACR BI-RADS Category 1: Negative 3341F PARENCHYMAL PATTERN: (VD) - The breast(s) demonstrate(s) extremely dense parenchyma, limiting the sen sitivity of mammography. BI-RADS CATEGORY: (1) - 1 RECOMMENDATION: (ANNUAL) - Recommend routine annual screening mammography. [id number] 1 year screening LATERALITY: (B)
== END 2020-09-17 15:36 | disposition home or self-care (01) ==
LOC: DI 15:35
DX: Z12.31 Encounter for screening mammogram for malignant neoplasm of breast (principal); Z80.3 Family history of malignant neoplasm of breast

== ENCOUNTER 2021-03-19 07:01 | Outpatient (CLI) | payer OTHER ==
--- NOTE | 2021-03-19 08:48 | MRI Report ---
PROCEDURE: Brain W/O INDICATIONS: MIGRAINE WITH AURA TECHNIQUE: Noncontrast axial T1 spin echo, axial T2 fast spin echo, sagittal and axial FLAIR, coronal T2 fast sp in echo, axial gradient echo, axial diffusion and ADC through the brain. COMPARISON: None. FINDINGS: Image quality: Excellent. CSF Spaces: Basal cisterns are patent. No extra-axial fluid collections. Ventricles are normal in size and shape. Brain: No intracranial masses or hemorrhage. Browne/white matter interface is normal. Brainstem appe ars normal. Diffusion-weighted images demonstrate no acute ischemic insult. No chronic ischemic ins ults. Normal intravascular flow voids are present. Skull and face: Calvarium has normal marrow signal. Orbits appear normal. Sinuses: Sinuses and mastoids are clear. IMPRESSION: Normal MRI of the brain without contrast. Reviewed by: Orion Martinez on 03/19/2021 8:47 AM PDT Approved by: Orion Martinez on 03/19/2021 8:47 AM [facility] Station ID: [id number]
== END 2021-03-19 07:02 | disposition home or self-care (01) ==
LOC: DI 07:01
PROVIDERS: ATTEND Physician Assistant
DX: G43.109 Migraine with aura, not intractable, without status migrainosus (principal)